=== PATIENT | male | born 1960 | race African-American/Black ===

== ENCOUNTER 2020-07-01 10:30 | Outpatient (REF) | payer OTHER, SELFPAY | END 2020-07-01 10:31 | disposition home or self-care (01) | LOC: HO.MDS 10:30 | PROVIDERS: PCP Internal Medicine; Visit Provider Internal Medicine | DX: K50.90 Crohn's disease, unspecified, without complications (principal) | CPT/HCPCS: 96413; 96415; J1745 ==

== ENCOUNTER 2020-08-12 14:08 | Outpatient (REF) | payer OTHER, SELFPAY ==
[2020-08-15 10:57] LABS: TS Negative Control Passed; TS Panel A 0; TS Panel B 0; TS Positive Control Passed; TSpotTB Negative (SeeBelow)
== END 2020-08-12 14:09 | disposition home or self-care (01) ==
LOC: HO.MDS 14:08
PROVIDERS: PCP Internal Medicine; Visit Provider Internal Medicine
DX: K50.90 Crohn's disease, unspecified, without complications (principal)
CPT/HCPCS: 86481; 96413; 96415; J1745

== ENCOUNTER → 2020-09-02 13:48 | Outpatient (BNVA) | payer OTHER, SELFPAY | PROVIDERS: PCP Internal Medicine; Referring Provider Internal Medicine; Visit Provider Surgery | DX: Z76.89 Persons encountering health services in other specified circumstances (principal) ==

== ENCOUNTER 2020-09-13 09:56 | Inpatient (IN) | payer OTHER, SELFPAY ==
[2020-09-05 20:59] VITALS: BMI 48.7
--- NOTE | 2020-09-12 09:41 | P.CONAN_ITS ---
Documented by User: Sofiya Disla 09/12/20 09:42 HPI - Anesthesia Eval Consult details Narrative: 59yo M for Repair of Incisional Hernias with Mesh [facility] Past Medical History Medical History Aortic aneurysm Asthma Crohn's disease GERD (gastroesophageal reflux disease) Gout Incisional hernia Obesity Obstructive sleep apnea Smoker Family History Family History Father History of prostate cancer Mother History of lung cancer Brother History of prostate cancer Surgical History Surgical History History of bowel resection (~2005) History of colonoscopy History of hernia repair (~2008) History of incisional hernia repair (10/11/18) Social History Social History Alcohol intake: never Smoking Status: Heavy tobacco smoker Packs Per Day: 1.5 Cigarettes Per Day: 30.0 Smoked in Last 30 Days: Yes Patient Interested in Nicotine Replacement: Yes Use of substances other than those prescribed or required for medical reasons: No Advance Directives: No Advance Directives Information Provided: No Advance Directives on File: No Meds Allergies Allergy/AdvReac Type Severity Reaction Status Date / Time Fish Containing Products Allergy Severe HIVES Verified 09/05/20 21:09 peanut Allergy Severe HIVES/SEVERE Verified 09/05/20 21:09 N/V egg [EGGS] Allergy Unknown DIARRHEA Verified 09/05/20 21:09 Home Medications Medication Instructions Recorded Confirmed Type ascorbic acid (vitamin C) 1,000 mg 500 mg PO BID 09/02/20 09/05/20 History tablet hydrochlorothiazide 25 mg tablet 25 mg PO DAILY 09/02/20 09/05/20 History infliximab 100 mg intravenous 100 mg IV DIRECTED 09/02/20 09/05/20 History solution omeprazole 40 mg capsule,delayed 40 mg PO DAILY 09/02/20 09/05/20 History release allopurinol 100 mg PO BID 09/05/20 09/05/20 History colchicine [Colcrys] 0.6 mg PO BID 09/05/20 09/13/20 History diclofenac sodium 2 g TOPICAL QID PRN 09/05/20 09/05/20 History dicyclomine 10 mg PO BID 09/05/20 09/05/20 History folic acid 1 mg PO DAILY 09/05/20 09/05/20 History gabapentin 400 mg PO TID 09/05/20 09/05/20 History loperamide 2 mg PO Q6H PRN 09/05/20 09/05/20 History oxycodone 10 mg PO BID PRN 09/05/20 09/05/20 History Symbicort 09/13/20 History albuterol sulfate [ProAir HFA] INHALATION 09/13/20 History Exam Exam Date and Time: September 12, 2020 0941 Height,Weight and Vital Signs: Height 5 ft 9 in Weight 149.685 kg Documented by User: Luis Carlos Triana 09/13/20 11:30 PMFSH Past Medical History Medical History Aortic aneurysm Asthma Crohn's disease GERD (gastroesophageal reflux disease) Gout Incisional hernia Obesity Obstructive sleep apnea Smoker Family History Family History Father History of prostate cancer Mother History of lung cancer Brother History of prostate cancer Family history of problems with anesthesia: No Surgical History Surgical History History of bowel resection (~2005) History of colonoscopy History of hernia repair (~2008) History of incisional hernia repair (10/11/18) History of Problems with Anesthesia: No Social History Social History Alcohol intake: never Smoking Status: Heavy tobacco smoker Packs Per Day: 1.5 Cigarettes Per Day: 30.0 Smoked in Last 30 Days: Yes Patient Interested in Nicotine Replacement: Yes Use of substances other than those prescribed or required for medical reasons: No Advance Directives: No Advance Directives Information Provided: No Advance Directives on File: No Meds Allergies Allergy/AdvReac Type Severity Reaction Status Date / Time Fish Containing Products Allergy Severe HIVES Verified 09/05/20 21:09 peanut Allergy Severe HIVES/SEVERE Verified 09/05/20 21:09 N/V egg [EGGS] Allergy Unknown DIARRHEA Verified 09/05/20 21:09 Home Medications Medication Instructions Recorded Confirmed Type ascorbic acid (vitamin C) 1,000 mg 500 mg PO BID 09/02/20 09/05/20 History tablet hydrochlorothiazide 25 mg tablet 25 mg PO DAILY 09/02/20 09/05/20 History infliximab 100 mg intravenous 100 mg IV DIRECTED 09/02/20 09/05/20 History solution omeprazole 40 mg capsule,delayed 40 mg PO DAILY 09/02/20 09/05/20 History release allopurinol 100 mg PO BID 09/05/20 09/05/20 History colchicine [Colcrys] 0.6 mg PO BID 09/05/20 09/13/20 History diclofenac sodium 2 g TOPICAL QID PRN 09/05/20 09/05/20 History dicyclomine 10 mg PO BID 09/05/20 09/05/20 History folic acid 1 mg PO DAILY 09/05/20 09/05/20 History gabapentin 400 mg PO TID 09/05/20 09/05/20 History loperamide 2 mg PO Q6H PRN 09/05/20 09/05/20 History oxycodone 10 mg PO BID PRN 09/05/20 09/05/20 History Symbicort 09/13/20 History albuterol sulfate [ProAir HFA] INHALATION 09/13/20 History Exam Airway Mallampati Class: I TM Dist: <=3cm Neck ROM: Limited Other: missing teeth no neck, huge head Assessment and Plan Assessment Anesthesia Assessment: Anesthesia Plan Discussed and Chart Reviewed Final Anesthetic Review NPO: Yes ASA Class: III Final Preanesthetic Review: No Changes in Pt Med Stat, Meds/Allgs Chart Reviewed, Consent Obtained/Reviewed and Anes Risks/Benef Reviewed Patient Risk: High Procedure Risk: Intermediate Anesthetic Plan Anesthetic Plan: GA and Agree w/ Assess. and Plan Disposition: Standard PACU
[2020-09-13] VITALS (10 sets, daily range): BP systolic 119–147; BP diastolic 65–84; PULSE 80–107; RESP 16–18; TEMP 36.1–37.1; O2SAT 91–100
--- NOTE | 2020-09-13 | ECG_ITS ---
Test Reason : PREOP Blood Pressure : / mmHG Vent. Rate : 110 BPM Atrial Rate : 110 BPM P-R Int : 170 ms QRS Dur : 074 ms QT Int : 340 ms P-R-T Axes : 058 014 041 degrees QTc Int : 460 ms Sinus tachycardia Possible Left atrial enlargement Borderline ECG No previous ECGs available Referred By: Sofiya Disla Electronically Signed By:Derrick Gurrola
[2020-09-13] MEDS: Lactated Ringers 1,000 ML 100 ML IVCONT (10:13)
[2020-09-13 10:17] LABS: COVID-19 Test Negative (Negative)
[2020-09-13] MEDS: ceFAZolin Sodium/Dextrose,Iso 2 GM/50 ML PIGGYBACK IV (10:20)
--- NOTE | 2020-09-13 10:55 | MHC.SHP ---
Pre-Procedural Eval Section B Chief Complaint: Incisional Hernia Allergies: Allergies Allergy/AdvReac Type Severity Reaction Status Date / Time Fish Containing Products Allergy Severe HIVES Verified 09/05/20 21:09 peanut Allergy Severe HIVES/SEVERE Verified 09/05/20 21:09 N/V egg [EGGS] Allergy Unknown DIARRHEA Verified 09/05/20 21:09 Plan I have reviewed the history and physical and performed a pertinent physical examination on my patient. No changes have occurred unless specified.
--- NOTE | 2020-09-13 13:48 | PM.OP ---
Brief Operative Note Date of Service: 09/13/20 Pre-op diagnosis: Multiple incisional hernias Post-op diagnosis: same Procedure: Repair of multiple incisional hernias; left midabdominal hernia repaired with mesh Implants: Ventralex 6cm Surgeon: Javier Muniz MD Anesthesia: GETA Napper Grinder: Tara Cortés Estimated blood loss (mL): 20 Pathology: none sent Condition: stable Disposition: PACU
--- NOTE | 2020-09-13 15:27 | OP_ITS ---
SURGEON: Javier Muniz MD INDICATIONS: The patient is a 59-year-old male, who had previously undergone multiple abdominal surgeries for Crohn's disease in the distant past. He had developed multiple incisional hernias including an old colostomy site on the left. He had undergone multiple repairs in the past. I had done a repair on him more than a year ago. He came back to me this year because of what he noted was other hernias that had appeared again. One was in the area of the colostomy and multiple hernias in the midline. I had reviewed this CAT scan myself and these hernias were noted along with bowel loops. In view of symptoms, he wanted to proceed with repair. He understood technique of repair with mesh of these multiple hernias. He was aware of the risks, benefits, and alternatives. He understood the high risk of recurrence in view of his morbid obesity as well as the recurrent nature of these hernias already. PREOPERATIVE DIAGNOSIS: Multiple incisional hernias. POSTOPERATIVE DIAGNOSIS: Multiple incisional hernias. PROCEDURE PERFORMED: Repair of multiple incisional hernias x3, one with Ventralex mesh, extensive lysis of adhesions. ESTIMATED BLOOD LOSS: COMPLICATIONS: ANESTHESIA: ASSISTANTS: Tara Cortés PA-C. SPECIMENS: DESCRIPTION OF PROCEDURE: He was brought to the operating room and placed supine on the table under general anesthesia via endotracheal tube. The abdomen was prepped and draped in usual sterile fashion. The surgical time-out was done. The patient received cefazolin 2 g IV preoperatively. I made a transverse incision on the skin on the left side where the old colostomy was. This was made using blade #15, it was carried down to full-thickness skin and subcutaneous fat. We gently dissected through the thick subcutaneous fat until we were able to visualize what appeared to be hernia sac. We dissected the sac off the rest of subcutaneous layer sharply with Metzenbaum scissors. This part of the procedure took an extended period of time because of the presence of bowel loops within the hernia itself. We had to extend the skin incision to be able to visualize the entire bowel loops. There was note of very large sac and large bowel loops. We had took long time for us to dissect the entire bowel loops off the rest of the subcutaneous layer. Eventually, able to separate all the bowel loops and sac from the thick subcutaneous fat. I gently and sharply dissected the sac off the rest of the fascia circumferentially with Metzenbaum scissors. We applied Clay clamps along the way on the fascia to be able to retract this and have a clear definition of the interface between the fascia and the bowel loops. We continued to dissect until we were able to completely reduce the entire hernia. The sac had reduced in the herniated bowel loops. I proceeded to continue to do sharp dissection of the underside of the fascial defect to allow placement of mesh. Again, the patient also had a lot of adhesions and lysing these adhesions under the fascial defect took a long period of time. Eventually, I felt that we had achieved adequate margins for placement of the mesh. The fascial defect on this area was about 4 x 3 cm in size. The patient had multiple other hernias in the midline. I proceeded to then made an incision on the upper midline using blade #15 and this was carried down through the subcutaneous fat. On the CAT scan, we had noted that the bowel loops were immediately under the skin, so we did not do a lot of dissection with the electrocautery. I did sharp dissection with the Metzenbaum scissors to separate the bowel loops off the rest of the thin subcutaneous layer. I was able to identify an edge of the fascia on the midline and I proceeded to apply Clay clamp on this. With this as a guide, by retracting the fascia, proceeded to continue to gently dissect the bowel loops off the fascial defect circumferentially. Again, we had to do a prolonged dissection in view of the presence of very adherent small bowel loops. We proceeded circumferentially until we were able to reduce the entire hernia. There was note of mesh on the defect. This had incorporated well already. There was a lot of extensive adhesions in the underside of the fascial layer. However, I felt that we would not be able to apply a and adequate space for this. I did not want to be aggressive with regard to further lysis of the small bowel loops around the fascia and view of the high risk of enterotomy. The defect on this midline just above the umbilicus was about 4 cm long as well. By palpation of the underside, I was able to palpate another defect superior to this, which was smaller. There was note of intervening intact fascia, about 1.5 cm. I decided to preserve this intervening fascia and continued to dissect on the subcutaneous layer to expose to expose the other 3rd hernia on the midline, which was higher up in the epigastric area. I had extended the skin incision from the midline earlier superiorly. I continued to dissect with the Metzenbaum scissors in the subcutaneous layer until I was able to visualize the sac. We gently dissected the sac off the rest of the fascial defect using Metzenbaum scissors until we were able to completely reduce this. I dissected the underside of this defect as well with Metzenbaum scissors. Again, in view of the very dense adhesions surrounding the area, I felt that we would not be able to apply another mesh here. So, I planned on closing these last 2 defects primarily with sutures. This 3rd defect was about 2 cm in length. I closed this with a running Maxon 1 stitch on the fascia. I then closed the 2nd larger defect in the midline using a running Maxon 1 stitch as well with care being taken to make sure that he did not have any bowel loops trapped by the sutures. I was able to complete this using the remaining intact fascia as well as the mesh on one side. We were able to therefore complete the repair of these 2 midline hernias primarily with sutures. I proceeded to then apply a medium-sized Ventralex mesh on the hernia on the old colostomy site. I was able to position this flat under the fascia by lifting the fascial edges with Clay clamps. I secured the Prolene straps to the fascial layer with Prolene 2-0 sutures. I then trimmed the straps. I closed the fascia with running Maxon 1 stitch incorporating the Prolene layer as well with some of the sutures. We copiously irrigated. I then reapposed the subcutaneous layer on this left-sided hernia with Dexon 3-0 sutures. Skin closure achieved in all incisions using tyrone. All incisions were infiltrated with Marcaine 0.5% for postop analgesia and the procedure was completed. The patient tolerated the procedure well. There were no complications noted. Initial and final counts of sponges and instruments were correct. Estimated blood loss was minimal. The patient was extubated without difficulty and transferred to recovery room with stable vital signs. MD KRYSTA La/CHEMO / [id number] JAH
--- NOTE | 2020-09-13 15:55 | PM.EVENT ---
Event Note Date of Service: 09/13/20 Event Note: pt seen and examined postop he underwent repair of multiple hernias today currently good pain control stable VS abd soft pain mgt abdl binder home if good pain control after 1-2 days
[2020-09-13] MEDS: Gabapentin 400 MG CAPSULE PO ×2 (16:14→19:33)
[2020-09-13] MEDS: Nicotine 21 MG PATCH.TD24 TRANSDERMA (16:14)
[2020-09-13] MEDS: Lactated Ringers 1,000 ML 80 ML IVCONT (16:19)
[2020-09-13] MEDS: 0.9 % Sodium Chloride Flush 3 ML SYRINGE IVFLUSH (16:19)
[2020-09-13] MEDS: Morphine Sulfate 2 MG/ML CARTRIDGE 4 MG IVPUSH (19:30)
[2020-09-13] MEDS: Colchicine 0.6 MG TABLET PO (19:34)
[2020-09-13] MEDS: Ascorbic Acid 500 MG TABLET PO (19:34)
[2020-09-13] MEDS: Dicyclomine HCl 10 MG CAPSULE PO (19:34)
[2020-09-14 03:58] VITALS: BP 129/78; PULSE 100; RESP 18; O2SAT 95
[2020-09-14] MEDS: Lactated Ringers 1,000 ML 80 ML IVCONT (04:35)
[2020-09-14] MEDS: Omeprazole 40 MG CAPSULE.DR PO (04:36)
[2020-09-14] MEDS: Morphine Sulfate 2 MG/ML CARTRIDGE 4 MG IVPUSH (05:57)
[2020-09-14 08:00] VITALS: BP 108/73; PULSE 90; RESP 20; TEMP 37.6; O2SAT 97
[2020-09-14] MEDS: Gabapentin 400 MG CAPSULE PO (09:13)
[2020-09-14] MEDS: allopurinoL 100 MG TABLET PO (09:13)
[2020-09-14] MEDS: Ascorbic Acid 500 MG TABLET PO (09:13)
[2020-09-14] MEDS: Folic Acid 1 MG TABLET PO (09:13)
[2020-09-14] MEDS: hydroCHLOROthiazide 25 MG TABLET PO (09:13)
[2020-09-14] MEDS: Colchicine 0.6 MG TABLET PO (09:14)
[2020-09-14] MEDS: Nicotine 21 MG PATCH.TD24 TRANSDERMA (09:14)
[2020-09-14] MEDS: Dicyclomine HCl 10 MG CAPSULE PO (09:14)
--- NOTE | 2020-09-14 09:51 | P.PNGS_ITS ---
Subjective Subjective Date of Service: 09/14/20 Interval history: feels well tolerating diet good pain control wants to go home has flatus Physical Exam Vital Signs: Vital Signs: Last Vital Signs Temp 99.6 F 09/14/20 08:00 Pulse 90 09/14/20 08:00 Resp 20 09/14/20 08:00 BP 108/73 09/14/20 08:00 Pulse Ox 97 09/14/20 08:00 Body Mass Index 48.7 Const: General: comfortable and no acute distress Cardio: Rate: regular rate GI: Other: dressings dry Palpation (GI): Soft to palpation, not firm, no guarding and not rigid Progress Note: A&P Assessment and plan (1) Incisional hernia: Status: Acute Assessment and Plan: S/P repair of multiple hernias doing well looks well good pain control good GI function ok to dc home today dc instructions given Fall Risk Details Current Medications: Current Medications Generic Name Dose Route Start Last Admin Trade Name Freq PRN Reason Stop Dose Admin Albuterol Sulfate 1 puff 09/13/20 15:22 Albuterol Sulfate 90 Mcg 8 Gm Inhaler INHALE RQ6H PRN Shortness of Breath/Wheezing Allopurinol 100 mg 09/13/20 21:00 09/14/20 09:13 Allopurinol 100 Mg Tablet PO 100 mg BID MICAH Administration Ascorbic Acid 500 mg 09/13/20 21:00 09/14/20 09:13 Ascorbic Acid 500 Mg Tablet PO 500 mg BID MICAH Administration Colchicine 0.6 mg 09/13/20 21:00 09/14/20 09:14 Colchicine 0.6 Mg Tablet PO 0.6 mg BID MICAH Administration Dicyclomine HCl 10 mg 09/13/20 21:00 09/14/20 09:14 Dicyclomine Hcl 10 Mg Capsule PO 10 mg BID MICAH Administration Docusate Sodium 100 mg 09/13/20 15:22 Docusate Sodium 100 Mg Capsule PO DAILY PRN Constipation Folic Acid 1 mg 09/14/20 09:00 09/14/20 09:13 Folic Acid 1 Mg Tablet PO 1 mg DAILY MICAH Administration Gabapentin 400 mg 09/13/20 15:22 09/14/20 09:13 Gabapentin 400 Mg Capsule PO 400 mg TID MICAH Administration Hydrochlorothiazide 25 mg 09/14/20 09:00 09/14/20 09:13 Hydrochlorothiazide 25 Mg Tablet PO 25 mg DAILY MICAH Administration Protocol Acetaminophen 1,000 mg in 100 mls @ 400 mls/hr 09/13/20 18:00 09/14/20 05:06 Ofirmev IV Infused Q6H PRN Infusion Pain, Severe (Pain Scale 7-10) Lactated Ringer's 1,000 mls @ 80 mls/hr 09/13/20 15:22 09/14/20 05:06 Lr IVCONT 80 mls/hr .[id number] MICAH Infusion Morphine Sulfate 4 mg 09/13/20 15:22 09/14/20 05:57 Morphine Sulfate 2 Mg/Ml Cartridge IVPUSH 4 mg Q3H PRN Administration Pain, Severe (Pain Scale 7-10) Nicotine 21 mg 09/13/20 14:15 09/14/20 09:14 Nicotine 21 Mg Patch.Td24 TRANSDERMA 21 mg DAILY MICAH Administration Omeprazole 40 mg 09/14/20 06:30 09/14/20 04:36 Omeprazole 40 Mg Capsule.Dr PO 40 mg DAILY@0630 [facility] Administration Ondansetron HCl 4 mg 09/13/20 15:22 Ondansetron Hcl 4 Mg/2 Ml Vial IVPUSH Q8H PRN Nausea Oxycodone HCl 5 mg 09/13/20 15:22 Oxycodone Hcl Immed Release 5 Mg Tablet PO Q4H PRN Pain, Moderate (Pain Scale 4-6 Oxycodone HCl 10 mg 09/13/20 15:22 Oxycodone Hcl Immed Release 5 Mg Tablet PO Q4H PRN Pain, Severe (Pain Scale 7-10) Sodium Chloride 3 ml 09/13/20 16:00 09/14/20 07:14 0.9 % Sodium Chloride Flush 3 Ml Syringe IVFLUSH Not Given QSHIFT [facility] Time Spent With Patient Time: Total time spent is greater than 50% in coordination of care (as documented) at patient's floor/unit and/or counseling patient: Time with patient: 15 - 24 minutes
--- NOTE | 2020-09-14 10:02 | MHC.CM.PN ---
PATIENT LIVES WITH HIS AND IS FULLY INDEPENDENT. NO DME OR SERVICES IN THE HOME. HE IS DISCHARGED TO TODAY - SELF CARE. WILL TRANSPORT. RN AWARE OF PLAN
[2020-09-14] MEDS: oxyCODONE HCl Immed Release 5 MG TABLET 10 MG PO (10:15)
--- NOTE | 2020-09-15 02:01 | HO.POSTANES ---
Post Anesthesia Evaluation Post Anesthesia Evaluation Anesthesia: General Mental Status: Awake Pain Control: Satisfactory Nausea/Vomiting: None Hydration: Adequate Anesthesia-Related Issues: No Anes. Related Issues
--- NOTE | 2020-09-17 14:22 | P.DS_ITS ---
DS: Providers Provider Date of admission: 09/13/20 09:56 Primary care physician: Max Lara MD DS: Diagnosis Discharge Diagnosis (1) Incisional hernia: Status: Acute DS: Medications Discharge Medications Home Medications: Home Medications Medication Instructions Recorded Confirmed ascorbic acid (vitamin C) 1,000 mg 500 mg PO BID 09/02/20 09/05/20 tablet hydrochlorothiazide 25 mg tablet 25 mg PO DAILY 09/02/20 09/05/20 infliximab 100 mg intravenous 100 mg IV DIRECTED 09/02/20 09/05/20 solution omeprazole 40 mg capsule,delayed 40 mg PO DAILY 09/02/20 09/05/20 release allopurinol 100 mg PO BID 09/05/20 09/05/20 colchicine [Colcrys] 0.6 mg PO BID 09/05/20 09/13/20 diclofenac sodium 2 g TOPICAL QID PRN 09/05/20 09/05/20 dicyclomine 10 mg PO BID 09/05/20 09/05/20 folic acid 1 mg PO DAILY 09/05/20 09/05/20 gabapentin 400 mg PO TID 09/05/20 09/05/20 loperamide 2 mg PO Q6H PRN 09/05/20 09/05/20 oxycodone 10 mg PO BID PRN 09/05/20 09/05/20 Symbicort 09/13/20 albuterol sulfate [ProAir HFA] INHALATION 09/13/20 DS: Summary Hospital Course Hospital Course: BRIEF HPI: 59 year old male who had previously undergone multiple abdominal surgeries for Crohn's disease in the distant past. He had developed multiple incisional hernias including at his old colostomy site on the left. He had undergone multiple repairs in the past. He now presents again for incisional hernias. He wants the 2 largest hernias repaired as these were the ones that he says have been bothersome to him. HOSPITAL COURSE: 0n 09/13/20, repair of multiple incisional hernias, one with mesh, was performed by Dr. Javier Muniz without complication. The patient tolerated the procedure well and was admitted to the medical/surgical floor for observation. The patient had an uncomplicated recovery course. On POD #1, the patient felt well and was comfortable. He was tolerating a solid diet and passing flatus. His abdomen was benign with appropriate post operative tenderness. His dressing was c/d/i. He felt ready for discharge. He was discharged to home on 09/14/20 in stable condition. He is to follow up with Dr. Muniz in office. Status at Discharge Functional status at discharge: independent ambulation Overall status at discharge: patient is progressing back to baseline Time Spent with Patient Time attestation: Total time spent providing and/or coordinating discharge services: Physical Exam Vital Signs: Vital Signs: Last Vital Signs Temp 99.6 F 09/14/20 08:00 Pulse 90 09/14/20 08:00 Resp 20 09/14/20 08:00 BP 108/73 09/14/20 08:00 Pulse Ox 97 09/14/20 08:00 Body Mass Index 48.7 Const: General: comfortable, no acute distress and alert Orientation/consc iousness: patient oriented x3 Resp: Effort & Inspection: normal respiratory effort GI: Inspection: No distended, Yes incision (dressing c/d/i) and Yes obesity Palpation (GI): Soft to palpation, Tenderness to palpation present (GI) (incisional, mild), not rigid and No Rebound tenderness present Skin: General skin exam: no rashes or lesions noted Neuro: General: patient oriented x3 Extrem: General: Yes no clubbing, cyanosis or edema DS: Data Data Completed and Pending Completed studies during hospitalization [Text1]: Procedures Release Peritoneum, Open Approach (09/13/20) Repair Abdominal Wall, Open Approach (09/13/20) Supplement Abdominal Wall with Synthetic Substitute, Open Approach (09/13/20) Labs on day of discharge: 09/13/20 ECG 12 lead EKG Stat 09/13/20 09:43 Albuterol Sulfate (0.083%) [Ventolin (0.083%)] 2.5 mg INHALE ONCE PRN 09/13/20 09:44 ceFAZolin Sodium/Dextrose,Iso [Ancef] 2 gm in 50 ml IV PREOP 09/13/20 09:45 Lactated Ringers [Lr] 1,000 ml IVCONT 100 mls/hr 09/13/20 09:51 COVID-19 ID NOW (Mauricio) Stat 09/13/20 10:18 ceFAZolin Sodium/Dextrose,Iso [Ancef] 2 gm in 50 ml .ROUTE As directed 09/13/20 10:56 Bupivacaine MPF 0.5 % [Sensorcaine MPF 0.5% 30 ML] 30 ml .ROUTE .STK-MED ONE Lidocaine HCl 1 % MPF [Xylocaine 1 % MPF] 5 ml .ROUTE .STK-MED ONE 09/13/20 11:19 Lidocaine HCl 2 % MPF [Xylocaine 2 % MPF] 5 ml .ROUTE .STK-MED ONE fentaNYL citrate/PF [Sublimaze] 50 mcg .ROUTE .STK-MED ONE propofoL [Diprivan] 200 mg IVPUSH .STK-MED ONE 09/13/20 11:37 HYDROmorphone HCl [Dilaudid] 0.5 mg IVPUSH Q5M PRN Ketorolac Tromethamine [Toradol] 15 mg IVPUSH ONCE PRN fentaNYL citrate/PF [Sublimaze] 50 mcg IVPUSH Q5M PRN 09/13/20 11:41 Acetaminophen [Ofirmev] 1,000 mg in 100 ml IV As directed 09/13/20 11:51 Rocuronium [place] [Zemuron] 100 mg IV .STK-MED ONE 09/13/20 12:49 fentaNYL citrate/PF [Sublimaze] 50 mcg .ROUTE .STK-MED ONE 09/13/20 13:29 Sugammadex Sodium [Bridion] 200 mg IVPUSH .STK-MED ONE ondansetron HCL [Zofran] 4 mg .ROUTE .STK-MED ONE 09/13/20 13:49 HYDROmorphone HCl [Dilaudid] 2 mg .ROUTE .STK-MED ONE 09/13/20 13:53 Transfer Order Routine 09/13/20 14:15 Nicotine [Nicoderm] 21 mg TRANSDERMA DAILY 09/13/20 14:37 propofoL [Diprivan] 200 mg IVPUSH .STK-MED ONE 09/13/20 15:08 Code Status Routine 09/13/20 15:22 Albuterol Sulfate [Ventolin] 1 puff INHALE RQ6H PRN Docusate Sodium [Colace] 100 mg PO DAILY PRN Gabapentin [Neurontin] 400 mg PO TID Lactated Ringers [Lr] 1,000 ml IVCONT 80 mls/hr Morphine Sulfate 4 mg IVPUSH Q3H PRN ondansetron HCL [Zofran] 4 mg IVPUSH Q8H PRN oxyCODONE HCl Immed Release [Roxicodone] 10 mg PO Q4H PRN oxyCODONE HCl Immed Release [Roxicodone] 5 mg PO Q4H PRN 09/13/20 15:22 Apply Abdominal Binder CONT Compression Therapy QSHIFT Incentive Spirometry NOW Intake and Output Q8HR Vital Signs QSHIFT RT BiPAP/CPAP BEDTIME 09/13/20 16:00 0.9 % Sodium Chloride Flush [NS Flush] 3 ml IVFLUSH QSHIFT 09/13/20 18:00 Acetaminophen [Ofirmev] 1,000 mg in 100 ml IV Q6H 09/13/20 21:00 Ascorbic Acid [Vitamin C] 500 mg PO BID Colchicine [Colcrys] 0.6 mg PO BID Dicyclomine HCl [Bentyl] 10 mg PO BID allopurinoL [Zyloprim] 100 mg PO BID 09/14/20 06:30 Omeprazole [PriLOSEC] 40 mg PO DAILY@0630 09/14/20 09:00 Folic Acid 1 mg PO DAILY hydroCHLOROthiazide [Microzide] 25 mg PO DAILY Laboratory Last Values COVID-19 (CED) Negative (Negative) 09/13/20 09:51 COVID-19 Clin Com See Note 09/13/20 09:51 Discharge Plan Discharge Anticipated Discharge Date/Time: 09/14/20 09:57 Patient Disposition: Home, Self-Care Referrals: Max Lara MD [Primary Care Provider] - Javier Muniz MD [Physician] - 09/25/20 Discharge Medications: Continued gabapentin 400 mg Capsule 400 mg PO TID RF: 0 loperamide 2 mg Tablet 2 mg PO Q6H PRN (Reason: Diarrhea) RF: 0 allopurinol 100 mg Tablet 100 mg PO BID RF: 0 folic acid 1 mg Tablet 1 mg PO DAILY RF: 0 dicyclomine 10 mg Capsule 10 mg PO BID RF: 0 diclofenac sodium 1 % Gel 2 g TOPICAL QID PRN (Reason: Pain) RF: 0 oxycodone 10 mg Tablet 10 mg PO BID PRN (Reason: Pain) RF: 0 colchicine [Colcrys] 0.6 mg Tablet 0.6 mg PO BID RF: 0 albuterol sulfate [ProAir HFA] 90 mcg/actuation Hfa Aerosol Inhaler INHALATION RF: 0 Symbicort RF: 0 omeprazole 40 mg capsule,delayed release(DR/EC) 40 mg PO DAILY RF: 0 Remicade 100 mg recon soln 100 mg IV DIRECTED RF: 0 ascorbic acid (vitamin C) 1,000 mg tablet 500 mg PO BID RF: 0 hydrochlorothiazide 25 mg tablet 25 mg PO DAILY RF: 0 Discharge Orders: Discharge Order (Routine); Ordered 09/14/20 Ordered By: Javier Muniz Diet: advance to usual diet Activity on Discharge: No heavy lifting Discharge Date/Time: 09/14/20 12:44 Activity Restrictions/Additional Instructions: If the incision area is tender, you may apply an ice pack for short intervals (No more than 20 minutes on, followed by at least 20 minutes off). Do not apply heat. Do not use creams, lotions, or topical antibiotics unless instructed to do so by your surgeon. These can cause infection or allergic reaction. Ok to shower. You have tyrone closing your incision and these will be removed approximately 10-14 days after surgery. Call Your Doctor If: -Your temperature exceeds 101.5? F -You experience excessive pain or swelling -You have an unexpected reaction to medication -You have excessive bleeding -You experience continued vomiting/nausea -Your incision begins to separate -Your incision shows signs of infection such as increased redness, swelling, excessive pain, drainage (light blood or clear fluid is normal) or heat Visit Report Forms: Patient Portal Discharge page Care Plan Goals: Return to baseline health and activity. Health Concerns: Multiple incisional hernias; s/p repair of multiple incisional hernias, one with mesh (left midabdomen) Plan of Treatment: s/p repair of multiple incisional hernias, one with mesh (left midabdomen); pain control
== END 2020-09-14 12:44 | disposition home or self-care (01) | DRG 337 ==
LOC: HO.SSSA 09:57 → HO.S3 12:29
PROVIDERS: Admitting Provider Surgery; PCP Internal Medicine; Visit Provider Surgery
PROC: 0DNW0ZZ Release Peritoneum, Open Approach (ICD-10-PCS; principal; 2020-09-13 11:00)
DX: K43.2 Incisional hernia without obstruction or gangrene (principal); K21.9 Gastro-esophageal reflux disease without esophagitis; F17.210 Nicotine dependence, cigarettes, uncomplicated; K66.0 Peritoneal adhesions (postprocedural) (postinfection); Z71.6 Tobacco abuse counseling; Z20.828 Contact with and (suspected) exposure to other viral communicable diseases
CPT/HCPCS: 87635; 93005; 99024; C1781; J0131; J0690; J1170; J2270; J2405; J3010

== ENCOUNTER 2020-09-25 10:16 | Outpatient (REF) | payer OTHER, SELFPAY | END 2020-09-25 10:17 | disposition home or self-care (01) | LOC: HO.MDS 10:16 | PROVIDERS: PCP Internal Medicine; Visit Provider Internal Medicine | DX: K50.90 Crohn's disease, unspecified, without complications (principal) | CPT/HCPCS: 96413; 96415; J1745 ==

== ENCOUNTER → 2020-10-31 09:51 | Outpatient (BNVA) | payer BC, SELFPAY | PROVIDERS: PCP Internal Medicine; Visit Provider Surgery ==

== ENCOUNTER → 2020-11-08 14:52 | Outpatient (BNVA) | payer BC, SELFPAY | PROVIDERS: PCP Internal Medicine; Visit Provider Surgery ==

== ENCOUNTER 2020-11-25 10:59 | Outpatient (REF) | payer BC, SELFPAY | END 2020-11-25 11:00 | disposition home or self-care (01) | LOC: HO.MDS 10:59 | PROVIDERS: PCP Internal Medicine; Visit Provider Internal Medicine | DX: K50.90 Crohn's disease, unspecified, without complications (principal) | CPT/HCPCS: 96365; 96366; 96413; 96415; J1745 ==

== ENCOUNTER → 2020-11-27 08:12 | Outpatient (BNVA) | payer BC, SELFPAY | PROVIDERS: PCP Internal Medicine; Visit Provider Surgery ==

== ENCOUNTER 2020-11-28 10:36 | Outpatient (REF) | payer BC, SELFPAY ==
--- NOTE | ~2020-11-28 | XR_ITS ---
EXAMINATION: XR CHEST CLINICAL INFORMATION: Obesity COMPARISON: Previous chest x-ray most recent August 2013 and lung windows from previous abdominal and pelvic CT scans most recent February 2020 TECHNIQUE: 2 views of the chest were obtained. FINDINGS: The cardiac and mediastinal contours are normal. There is a 3.5 cm nodular density seen on the lateral view anterior to the lower thoracic spine. No corresponding abnormality is appreciated on the PA view and this may be due to overlapping vascular structures. No lung nodule is seen on the lung windows from recent abdominal and pelvic CT scans. The lungs are otherwise clear. There is no pleural effusion or pneumothorax. Bony structures are unremarkable. XR/XR chest 2V IMPRESSION: 3 cm nodule projecting over the lower lobes on the lateral view. This is not appreciated on the PA view and may be related to overlapping vascular structures. Follow-up chest CT scan to exclude nodule should be considered.
--- NOTE | ~2020-11-28 | FL_ITS ---
EXAMINATION: FL UPPER GI SERIES CLINICAL INFORMATION: Bariatric service evaluation. E66.01. COMPARISON: CT abdomen and pelvis noncontrast 03/21/2020 TECHNIQUE: Upper GI series is performed using fluoroscopic evaluation in addition to multiple fluoroscopic spot views. The patient is imaged both upright and prone and using both thick and thin barium sulfate along with effervescent granules. Fluoroscopy time: 1.2 minutes DAP: 49.39 Gycm2 Fluoroscopic spot images: 18 FINDINGS: There is normal esophageal motility. There is no obstruction, stricture, or ulceration. Some borderline herniation at the esophagogastric junction is noted during the prone Valsalva maneuver but no hiatal hernia is demonstrated. No gastroesophageal reflux is demonstrated. The stomach shows no thickened folds or ulcer crater or outlet obstruction. The duodenal bulb is pliable and without ulcer crater or scarring. The post bulbar duodenum the jejunal mucosal pattern are unremarkable. FL/FL upper GI series IMPRESSION: Normal study.
--- NOTE | ~2020-11-28 | US_ITS ---
EXAMINATION: US COMPLETE ABDOMEN WITH LIVER ELASTOGRAPHY CLINICAL INFORMATION: Morbid obesity. COMPARISON: None. TECHNIQUE: Real-time imaging of the abdominal viscera. Noninvasive ultrasound liver fibrosis assessment is performed using Monet ElastPQ point quantification shear wave elastography (pSWE) with a C5-2 MHz transducer. Multiple elastography samples are obtained. FINDINGS: PANCREAS: The visualized pancreatic head and body are normal in appearance. The remainder of the pancreas is obscured from visualization by the overlying bowel gas. The tail is obscured by overlying gas. ABDOMINAL AORTA: The proximal segment is normal in caliber. The mid and the distal segment of the abdominal aorta is not visualized. INFERIOR VENA CAVA: Visualized portions are normal. LIVER: The liver is normal size and shape with diffuse increased echogenicity. Hypoechoic area at the level of lb hepatis likely focal fatty sparing. No intrahepatic ductal dilatation seen. The right lobe measures 19.0 cm in length. The left lobe measures 14.3 cm in length. Portal flow is normal. Shear wave liver elastography median stiffness is 1.77 m/s (reference: normal median stiffness is 1.3 m/s or less). IQR/median stiffness to assess sampling precision is 0.19 (reference: good quality data set is IQR/median stiffness of 0.15 or less). GALLBLADDER: Normal. The gallbladder is physiologically distended without evidence of stones, sludge, polyps, wall thickening or pericholecystic fluid. COMMON BILE DUCT: Normal in caliber measuring 0.35 cm in diameter. RIGHT KIDNEY: Normal. No hydronephrosis. No renal calculi or focal parenchymal lesions. The kidney measures 10.4 cm in maximum dimension. LEFT KIDNEY: Normal. No hydronephrosis. No renal calculi or focal parenchymal lesions. The kidney measures 11.7 cm in maximum dimension. SPLEEN: Normal. The spleen measures 8.6 cm in maximum dimension. FREE FLUID: None. US/US abdomen comp w elastography IMPRESSION: 1. Heterogeneous liver with area of focal fatty sparing adjacent to the lb hepatis. Rest of the abdominal ultrasound is unremarkable. 2. Liver elastography: Median stiffness 1.77. This is suggestive of cACLD. REFERENCE: Society of Radiologists in Ultrasound Liver Stiffness Thresholds (2020): LIVER STIFFNESS THRESHOLDS: *Liver Stiffness equal or less than 1.3 m/s: High probability of being normal. *Liver Stiffness less than 1.7 m/s: In the absence of other known clinical signs, rules out compensated advanced chronic liver disease. *Liver Stiffness 1.7-2.1 m/s: Suggestive of compensated advanced chronic liver disease but need further test for confirmation. *Liver Stiffness over 2.1 m/s: Rules in compensated advanced chronic liver disease. *Liver Stiffness over 2.4 m/s: Suggestive of clinically significant portal hypertension. QUALITY OF DATA SET: *IQR/Median value equal or less than 0.15 implies a quality data set. *IQR/Median value over 0.15 implies a poor quality data set. SIGNIFICANT CHANGE FROM PRIOR EXAM: Significant change if liver stiffness measurement is 10% or greater from prior exam. OTHER CONSIDERATIONS: The stage of liver fibrosis may be overestimated in the setting of acute hepatitis, liver inflammation, elevated liver function tests, hepatic vascular congestion, obstructive cholestasis, non-fasting state, and infiltrative diseases such as amyloidosis and lymphoma. In some patients with NAFLD, the liver stiffness thresholds for compensated advanced chronic liver disease may be lower. In causes other than viral hepatitis and NAFLD, liver stiffness thresholds are not well established.
== END 2020-11-28 10:37 | disposition home or self-care (01) ==
LOC: HO.US 10:36
PROVIDERS: Visit Provider Surgery
DX: Z01.818 Encounter for other preprocedural examination (principal); E66.01 Morbid (severe) obesity due to excess calories; K21.9 Gastro-esophageal reflux disease without esophagitis; M10.9 Gout, unspecified; K50.90 Crohn's disease, unspecified, without complications; J45.909 Unspecified asthma, uncomplicated; I10 Essential (primary) hypertension; G47.33 Obstructive sleep apnea (adult) (pediatric)
CPT/HCPCS: 71046; 74240; 76705; 76981

== ENCOUNTER → 2020-12-04 08:42 | Outpatient (BNVA) | payer BC, SELFPAY | PROVIDERS: PCP Internal Medicine; Visit Provider Dietitian, Registered ==

== ENCOUNTER 2020-12-06 10:15 | Outpatient (REF) | payer BC, SELFPAY ==
--- NOTE | 2020-12-06 10:39 | ECG_ITS ---
Test Reason : E66.01 Blood Pressure : / mmHG Vent. Rate : 093 BPM Atrial Rate : 093 BPM P-R Int : 168 ms QRS Dur : 080 ms QT Int : 346 ms P-R-T Axes : 000 021 002 degrees QTc Int : 430 ms Normal sinus rhythm Normal ECG When compared with ECG of 13-SEP-2020 09:56, T wave inversion now evident in Inferior leads Referred By: Nate Wallace Electronically Signed By:KRISSY LAWS MD
[2020-12-06 11:28] LABS: MANUAL DIFF FLAG NO
[2020-12-06 11:39] LABS: Basophils Percent Auto 0.2 % (0-2); Hematocrit 40.6 % (42-52); Hemoglobin 12.1 g/dl (14.0-18.0); Imm Gran Abs Auto 0.09 X10*3/uL (0.00-0.03); Imm Gran Pct Auto 0.5 % (0.0-0.4); Lymphocytes Absolute Auto 2.3 X10*3/uL (1.2-4.9); Lymphocytes Percent Auto 13.9 % (20-40); Mean Corpuscular HGB Conc 29.8 g/dl (31.0-36.0); Mean Corpuscular Volume 80.6 fL (80-98); Mean Platelet Volume 10.8 fL (9.4-12.4); Monocytes Percent Auto 6.3 % (2-11); Neutrophils Absolute Auto 13.1 X10*3/uL (2.0-8.3); Neutrophils Percent Auto 79.1 % (45-73); Platelet Count 317 X10*3/uL (160-400); Red Blood Count 5.04 X10*6/uL (4.60-5.80); White Blood Count 16.6 X10*3/uL (4.8-10.8)
[2020-12-06 11:46] LABS: Estimated Average Glucose 97 mg/dL
[2020-12-06 11:51] LABS: Alanine Aminotransferase 21 U/L (0-40); Albumin Level 4.3 g/dL (3.5-5.0); Alkaline Phosphatase 67 U/L (39-117); Anion Gap 13 (12-20); Aspartate Amino Transferase 26 U/L (5-37); Bilirubin Total 0.5 mg/dL (0.0-1.0); Blood Urea Nitrogen 30 mg/dL (9-16); C Reactive Protein 0.12 mg/dL (< or = 0.50); Calcium 9.1 mg/dL (8.4-10.2); Carbon Dioxide 29 mmol/L (22-29); Chloride 105 mmol/L (96-108); Cholesterol 234 mg/dL; Estimated Glomerular Filt Rate 46; Glucose Random 120 mg/dL (60-115); HDL Cholesterol 64 mg/dL; LDL Cholesterol Calculated 133 mg/dl; Potassium 4.3 mmol/L (3.3-5.1); Sodium 143 mmol/L (135-145); Total Protein 7.2 g/dL (6.5-8.0); Triglycerides 189 mg/dL
[2020-12-06 12:12] LABS: Ferritin 170 ng/mL (20-250); Prostate Specific Antigen 0.53 ng/mL (<0.05-4.0); TSH reflex Free T4 1.14 uIU/mL (0.32-4.0); Vitamin D 25-OH Total 37.8 ng/mL (>30)
[2020-12-07 13:22] LABS: Folate > 20.0 ng/mL (> or = 4.0); Vitamin B12 149 pg/mL (200-900)
[2020-12-09 16:07] LABS: Calcium (PTHI) 9.5 mg/dL (8.6-10.3); PTHI 140 pg/mL (14-64)
[2020-12-09 22:26] LABS: Insulin Level Total 38.9 uIU/mL
[2020-12-10 00:21] LABS: Zinc 58 mcg/dL (60-130)
[2020-12-11 12:56] LABS: Vitamin A 83 mcg/dL (38-98)
[2020-12-12 16:27] LABS: Vitamin B1 8 nmol/L (8-30)
== END 2020-12-06 10:16 | disposition home or self-care (01) ==
LOC: HO.LAB 10:15
PROVIDERS: Absent Provider Internal Medicine; PCP Internal Medicine; Visit Provider Surgery
DX: E66.01 Morbid (severe) obesity due to excess calories (principal); R79.89 Other specified abnormal findings of blood chemistry; E78.00 Pure hypercholesterolemia, unspecified; J45.909 Unspecified asthma, uncomplicated; G47.33 Obstructive sleep apnea (adult) (pediatric); K50.90 Crohn's disease, unspecified, without complications; I10 Essential (primary) hypertension; K21.9 Gastro-esophageal reflux disease without esophagitis; E79.0 Hyperuricemia without signs of inflammatory arthritis and tophaceous disease; M10.9 Gout, unspecified; Z12.5 Encounter for screening for malignant neoplasm of prostate
CPT/HCPCS: 36415; 80053; 80061; 82306; 82607; 82728; 82746; 83036; 83525; 83970; 84153; 84425; 84443; 84590; 84630; 85025; 86140; 93005

== ENCOUNTER → 2020-12-19 09:54 | Outpatient (BNVA) | payer BC, SELFPAY | PROVIDERS: PCP Internal Medicine; Visit Provider Dietitian, Registered ==

== ENCOUNTER 2020-12-20 10:43 | Outpatient (REF) | payer BC, SELFPAY ==
[2020-12-21 14:07] LABS: H Pylori Breath Test NOT DETECTED (NOT DETECTED)
== END 2020-12-20 10:44 | disposition home or self-care (01) ==
LOC: HO.LNP 10:43
PROVIDERS: PCP Internal Medicine; Visit Provider Surgery
DX: A04.8 Other specified bacterial intestinal infections (principal); E66.01 Morbid (severe) obesity due to excess calories; J45.909 Unspecified asthma, uncomplicated; G47.33 Obstructive sleep apnea (adult) (pediatric); K50.90 Crohn's disease, unspecified, without complications; I10 Essential (primary) hypertension; K21.9 Gastro-esophageal reflux disease without esophagitis; M10.9 Gout, unspecified
CPT/HCPCS: 83013

== ENCOUNTER → 2020-12-23 08:12 | Outpatient (BNVA) | payer BC, SELFPAY | PROVIDERS: PCP Internal Medicine; Visit Provider Surgery ==

== ENCOUNTER 2020-12-24 14:02 | Outpatient (REF) | payer BC, SELFPAY ==
--- NOTE | ~2020-12-24 | CT_ITS ---
EXAMINATION: CT CHEST WITH CONTRAST CLINICAL INFORMATION: Question pulmonary nodule COMPARISON: Previous chest x-ray November [address] of the abdomen and pelvis February 2020 TECHNIQUE: Multidetector volumetric CT imaging of the chest was obtained after the administration of 100 mL of Omnipaque 350 intravenous contrast without immediate adverse reactions. Axial MIP volume rendering provided. Sagittal and coronal reformatted images were obtained. This CT examination was performed using dose optimization techniques as appropriate, variously including the following: *Automated exposure control *Adjustment of mA and/or kV according to patient size (this includes techniques or standardized protocols for targeted exams where dose is matched to indication/reason for exam; i.e. extremities or head) *Use of iterative reconstruction technique DLP: 875 mGy-cm FINDINGS: FLOATING OPERATOR: Unremarkable LUNGS: There is a scarring or subsegmental atelectasis at the lung bases. The lungs are otherwise clear. No pulmonary nodule is seen. MEDIASTINUM: The mediastinum is normal. PLEURA: There is no pleural effusion. No pleural mass or thickening. AXILLA: No lymphadenopathy. UPPER ABDOMEN: The liver is slightly low in attenuation suggestive of fatty infiltration. There is a small fluid collection just deep to the upper abdominal wall slightly to the left of midline. This measures 2 x 4 cm in AP and transverse dimension and 4.3 cm in longitudinal dimension. This is similar to previous abdominal and pelvic CT scan February 2020 and likely represents a small fluid collection related to hernia repair. OSSEOUS STRUCTURES: There are mild degenerative changes of the spine. CT/CT chest w con IMPRESSION: No pulmonary nodule seen. Minimal linear scarring or subsegmental atelectasis at the lung bases. Fatty liver. 2 x 4 x 4 cm fluid collection just deep to the upper abdominal wall. This is similar to February 2020 exam and likely represents a small postoperative fluid collection post hernia repair.
[2020-12-24] MEDS: iohexoL 350 MG/ML 75 ML INFUS..BTL IV (14:47)
== END 2020-12-24 14:03 | disposition home or self-care (01) ==
LOC: HO.CT 14:02
PROVIDERS: Visit Provider Surgery
DX: R91.1 Solitary pulmonary nodule (principal)
CPT/HCPCS: 71260; Q9967

== ENCOUNTER → 2021-01-07 08:29 | Outpatient (BNVA) | payer BC, SELFPAY | PROVIDERS: PCP Internal Medicine; Visit Provider Dietitian, Registered ==

== ENCOUNTER → 2021-01-10 08:16 | Outpatient (BNVA) | payer BC, SELFPAY | PROVIDERS: PCP Internal Medicine; Visit Provider Dietitian, Registered | DX: E66.01 Morbid (severe) obesity due to excess calories (principal) | CPT/HCPCS: 97803 ==

== ENCOUNTER → 2021-01-20 08:25 | Outpatient (BNVA) | payer BC, SELFPAY | PROVIDERS: PCP Internal Medicine; Visit Provider Surgery ==

== ENCOUNTER 2021-02-26 11:55 | Outpatient (REF) | payer BC, SELFPAY ==
[2021-03-01 17:06] LABS: TS Negative Control Passed; TS Panel A 1; TS Panel B 0; TS Positive Control Passed; TSpotTB Negative (SeeBelow)
== END 2021-02-26 11:56 | disposition home or self-care (01) ==
LOC: HO.MDS 11:55
PROVIDERS: Visit Provider Internal Medicine
DX: K50.812 Crohn's disease of both small and large intestine with intestinal obstruction (principal)
CPT/HCPCS: 36415; 86481; 96413; 96415; J1745

== ENCOUNTER 2021-04-11 12:05 | Outpatient (REF) | payer BC, SELFPAY | END 2021-04-11 12:06 | disposition home or self-care (01) | LOC: HO.MDS 12:05 | PROVIDERS: Visit Provider Internal Medicine | DX: K50.90 Crohn's disease, unspecified, without complications (principal) | CPT/HCPCS: 96413; 96415; J1745 ==

== ENCOUNTER 2021-06-06 10:52 | Outpatient (REF) | payer BC, SELFPAY | END 2021-06-06 10:53 | disposition home or self-care (01) | LOC: HO.MDS 10:52 | PROVIDERS: Visit Provider Internal Medicine | DX: K50.812 Crohn's disease of both small and large intestine with intestinal obstruction (principal) | CPT/HCPCS: Q5103 ==

== ENCOUNTER 2021-07-04 10:07 | Outpatient (REF) | payer BC, SELFPAY | END 2021-07-04 10:08 | disposition home or self-care (01) | LOC: HO.MDS 10:07 | PROVIDERS: Visit Provider Internal Medicine | DX: K50.812 Crohn's disease of both small and large intestine with intestinal obstruction (principal) | CPT/HCPCS: 96413; 96415; J1745; Q5103 ==

== ENCOUNTER 2021-09-15 12:09 | Outpatient (REF) | payer BC, SELFPAY | END 2021-09-15 12:10 | disposition home or self-care (01) | LOC: HO.MDS 12:09 | PROVIDERS: Visit Provider Internal Medicine | DX: K50.90 Crohn's disease, unspecified, without complications (principal) | CPT/HCPCS: 96413; 96415; Q5103 ==

== ENCOUNTER 2021-10-03 14:57 | Emergency (ER) | payer BC, SELFPAY | END 2021-10-03 17:32 | disposition left against medical advice (07) | PROVIDERS: Emergency Provider Emergency Medicine | DX: G89.29 Other chronic pain (principal) ==

== ENCOUNTER 2021-10-05 12:41 | Emergency (ER) | payer BC, SELFPAY ==
--- NOTE | ~2021-10-05 | CT_ITS ---
EXAMINATION: CT ABDOMEN AND PELVIS WITHOUT CONTRAST CLINICAL INFORMATION: 60-year-old male with history of Crohn's disease. Question small bowel obstruction. COMPARISON: Chest CT 12/24/2020, abdominal ultrasound 11/28/[address] abdomen pelvis 03/21/2020 TECHNIQUE: Multidetector volumetric imaging was performed from the superior aspect of the liver through the pubic symphysis. Sagittal and coronal reformatted images were obtained on the technologist's workstation. This CT examination was performed using dose optimization techniques as appropriate, variously including the following: *Automated exposure control *Adjustment of mA and/or kV according to patient size (this includes techniques or standardized protocols for targeted exams where dose is matched to indication/reason for exam; i.e. extremities or head) *Use of iterative reconstruction technique DLP: 1339 mGy-cm FINDINGS: Visualized lung bases are well aerated. Stable size and appearance of approximately 4 cm well-defined fluid collection just deep to the upper abdominal wall. The liver is mildly enlarged and demonstrates diffusely decreased attenuation. The gallbladder is relatively decompressed and therefore not accurately evaluated. The pancreas, spleen and adrenal glands are unremarkable. Symmetrically sized kidneys. No renal calculi or hydronephrosis bilaterally. The stomach is essentially decompressed. Proximal loops of small bowel are normal in caliber although there is gradual dilatation of the remaining loops of small bowel. Some loops of small bowel measure up to 6.8 cm in maximum diameter. Scattered air-fluid levels are also noted throughout the small bowel. Transition zone appears to be a herniated loop of bowel slightly to the left of midline (image 33/89, series 3). Loops of colon distal to this are decompressed. There has been interval surgical changes of the ventral abdominal wall with resolution of the previously visualized large left-sided hernia. A small hernia is however noted just to the right of midline which contains a nonobstructed loop of bowel (image 54). Normal caliber abdominal aorta. No retroperitoneal lymphadenopathy. The bladder is normal in appearance. The prostate gland is normal in size. No gross free pelvic fluid. No inguinal lymphadenopathy. Mild degenerative changes of the spine. CT/CT abdomen pelvis wo con IMPRESSION: Small bowel obstruction which is felt to be caused by a herniated loop of bowel slightly to the left of midline. This Critical Result was discussed with Dr. Brower at 3:20 PM on 10/05/2021 and it was ascertained that the content and urgency of the report was understood at the time of direct communication. Fleischner guidelines were followed.
--- NOTE | 2021-10-05 13:05 | ED_ITS ---
HPI - Abdominal Pain General Chief Complaint: Abdominal Pain Stated Complaint: abd pain Time Seen by Provider: 10/05/21 13:04 Source: patient Mode of arrival: EMS Limitations: no limitations History of Present Illness HPI narrative: Patient's history of Crohn's disease not on any medications recently diagnosed with lung cancer with Mets complaining of diffuse abdominal pain for last 4-5 days with abdominal distension did not have any bowel movement not passing any gas nauseated patient is very forgetful and a poor historian. No fever no chills no blood in the stool feel nauseated no vomiting Related Data Home Medications Medication Instructions Recorded Confirmed ascorbic acid (vitamin C) 1,000 mg 500 mg PO BID 09/02/20 10/31/20 tablet hydrochlorothiazide 25 mg tablet 25 mg PO DAILY 09/02/20 10/31/20 infliximab 100 mg intravenous 100 mg IV DIRECTED 09/02/20 10/31/20 solution (Remicade) omeprazole 40 mg capsule,delayed 40 mg PO DAILY 09/02/20 10/31/20 release allopurinol 100 mg tablet 100 mg PO BID 09/05/20 10/31/20 colchicine 0.6 mg tablet (Colcrys) 0.6 mg PO BID 09/05/20 10/31/20 diclofenac sodium 1 % topical gel 2 g TOPICAL QID PRN 09/05/20 10/31/20 dicyclomine 10 mg capsule 10 mg PO BID 09/05/20 10/31/20 folic acid 1 mg tablet 1 mg PO DAILY 09/05/20 10/31/20 gabapentin 400 mg capsule 400 mg PO TID 09/05/20 10/31/20 loperamide 2 mg tablet 2 mg PO Q6H PRN 09/05/20 10/31/20 oxycodone 10 mg tablet 10 mg PO BID PRN 09/05/20 10/31/20 Symbicort 09/13/20 10/31/20 albuterol sulfate 90 mcg/actuation INHALATION 09/13/20 10/31/20 aerosol inhaler (ProAir HFA) Previous Rx's Medication Instructions Recorded mecobalamin (vitamin B12) 1,000 1,000 mcg SUBLINGUAL DAILY #30 tab 12/20/20 mcg disintegrating tablet,sublingual zinc gluconate 10 mg lozenges 10 mg PO DAILY #100 ea 12/20/20 Allergies Allergy/AdvReac Type Severity Reaction Status Date / Time Fish Containing Products Allergy Severe HIVES Verified 10/31/20 17:49 peanut Allergy Severe HIVES/SEVERE Verified 10/31/20 17:49 N/V Review of Systems Review of Systems Yes all other systems are reviewed and are negative Physical Exam Vital Signs: Vital Signs: Last Vital Signs Temp 98.2 F 10/05/21 15:13 Pulse 94 10/05/21 15:13 Resp 20 10/05/21 15:13 BP 141/78 H 10/05/21 15:13 Pulse Ox 95 10/05/21 15:13 BMI result Body Mass Index 52.9 Appearance: Alert. Oriented X3. In mild distress. Eyes: No pallor or icterus ENT: Pharynx normal. Oral Mucosa moist Neck: Normal inspection. Neck supple. CVS: Normal heart rate and rhythm. Pulses normal. Respiratory: No respiratory distress. Equal air entry bilateral, no wheezi ng/rales/rhonchi Abdomen: Soft gaseous distension tympanic on percussion, diffuse tenderness no rebound tenderness guarding Bowel sounds are present, no mass palpable, no CVA tenderness Skin: Skin warm and dry. Normal skin color. Normal skin turgor. Extremities: No lower extremity edema. No calf tenderness Neuro: Oriented X 3. No motor deficit. MDM - Abdominal Pain MDM Narrative Medical decision making narrative: Patient with small-bowel obstruction caused by herniated loop needs NG tube patient refused to have NG tube does not want any surgery does not want to stay in the hospital wants to go home a signed AMA. Patient was explained multiple times about the need for NG tube and admission but patient still refused Medical Records Attestation: I reviewed the patient's medical records. Lab Data Attestation: I reviewed the patient's lab results. Result diagrams: 10/05/21 13:54 10/05/21 13:54 Labs: Lab Results 10/05/21 10/05/21 10/05/21 Range/Units 13:54 13:54 13:54 WBC 11.7 H (4.8-10.8) X10*3/uL RBC 5.76 (4.60-5.80) X10*6/uL Hgb 14.1 (14.0-18.0) g/dl Hct 45.9 (42.0-52.0) % MCV 79.7 L (80.0-98.0) fL MCH 24.5 L (27.0-33.0) pg MCHC 30.7 L (31.0-36.0) g/dl RDW 15.7 (11.0-16.0) % Plt Count 288 (160-400) X10*3/uL MPV 10.4 (9.4-12.4) fL Immature Gran % (Auto) 0.3 (0.0-0.4) % Neut % (Auto) 62.1 (45-73) % Lymph % (Auto) 19.0 L (20-40) % [place] % (Auto) 17.6 H (2-11) % Eos % (Auto) 0.7 (0-4) % Baso % (Auto) 0.3 (0-2) % Lymph # (Auto) 2.2 (1.2-4.9) X10*3/uL [place] # (Auto) 2.1 H (0.1-1.2) X10*3/uL Eos # (Auto) 0.1 (0.0-0.4) X10*3/uL Baso # (Auto) 0.0 (0.0-0.2) X10*3/uL Abs Immat Gran (auto) 0.03 (0.00-0.03) X10*3/uL Absolute Neuts (auto) 7.3 (2.0-8.3) x10*3/uL Absolute Nucleated RBC 0.000 (0.0-0.012) X10*3/uL Nucleated RBC % (auto) 0.0 (0.0-0.2) /100WBC Smear Tech's Comments VERIFIED Sodium 142 (135-145) mmol/L Potassium 4.2 (3.3-5.1) mmol/L Chloride 101 (96-108) mmol/L Carbon Dioxide 30 H (22-29) mmol/L Anion Gap 15 (12-20) BUN 47 H (9-16) mg/dL Creatinine 2.38 H (0.5-1.4) mg/dL Estim Creat Clear Calc 49.8 Estimated GFR 28 Random Glucose 116 H (60-115) mg/dL Lactic Acid 1.0 (0.5-2.0) mmol/L Calcium 9.6 (8.4-10.2) mg/dL Total Bilirubin 11.1 H (0.0-1.0) mg/dL AST 48 H D (5-37) U/L ALT 76 H (0-40) U/L Alkaline Phosphatase 91 D (39-117) U/L Total Protein 6.5 (6.5-8.0) g/dL Albumin 3.9 (3.5-5.0) g/dL Urine Color Urine Appearance Urine pH (5.0-8.0) Ur Specific [place] (1.005-1.025) Urine Protein (NEG-TRACE) MG/DL Urine Glucose (UA) (NEG) MG/DL Urine Ketones (NEG) MG/DL Urine Blood (NEG) Urine Nitrite (NEG) Ur Leukocyte Esterase (NEG) Urine RBC (0) /HPF Urine WBC (0-4) /HPF Ur Squamous Epith Cells /LPF Amorphous Sediment /LPF Urine Bacteria /LPF Hyaline Casts /LPF Granular Casts /LPF Urine Mucus /LPF COVID-19 (CED) (Negative) COVID-19 Clin Com 10/05/21 10/05/21 Range/Units 13:54 15:23 WBC (4.8-10.8) X10*3/uL RBC (4.60-5.80) X10*6/uL Hgb (14.0-18.0) g/dl Hct (42.0-52.0) % MCV (80.0-98.0) fL MCH (27.0-33.0) pg MCHC (31.0-36.0) g/dl RDW (11.0-16.0) % Plt Count (160-400) X10*3/uL MPV (9.4-12.4) fL Immature Gran % (Auto) (0.0-0.4) % Neut % (Auto) (45-73) % Lymph % (Auto) (20-40) % [place] % (Auto) (2-11) % Eos % (Auto) (0-4) % Baso % (Auto) (0-2) % Lymph # (Auto) (1.2-4.9) X10*3/uL [place] # (Auto) (0.1-1.2) X10*3/uL Eos # (Auto) (0.0-0.4) X10*3/uL Baso # (Auto) (0.0-0.2) X10*3/uL Abs Immat Gran (auto) (0.00-0.03) X10*3/uL Absolute Neuts (auto) (2.0-8.3) x10*3/uL Absolute Nucleated RBC (0.0-0.012) X10*3/uL Nucleated RBC % (auto) (0.0-0.2) /100WBC Smear Tech's Comments Sodium (135-145) mmol/L Potassium (3.3-5.1) mmol/L Chloride (96-108) mmol/L Carbon Dioxide (22-29) mmol/L Anion Gap (12-20) BUN (9-16) mg/dL Creatinine (0.5-1.4) mg/dL Estim Creat Clear Calc Estimated GFR Random Glucose (60-115) mg/dL Lactic Acid (0.5-2.0) mmol/L Calcium (8.4-10.2) mg/dL Total Bilirubin (0.0-1.0) mg/dL AST (5-37) U/L ALT (0-40) U/L Alkaline Phosphatase (39-117) U/L Total Protein (6.5-8.0) g/dL Albumin (3.5-5.0) g/dL Urine Color ORANGE Urine Appearance CLEAR Urine pH 5.5 (5.0-8.0) Ur Specific [place] >= 1.030 H (1.005-1.025) Urine Protein 3+ H (NEG-TRACE) MG/DL Urine Glucose (UA) NEG (NEG) MG/DL Urine Ketones 5 (NEG) MG/DL Urine Blood TRACE (NEG) Urine Nitrite SEE NOTE (NEG) Ur Leukocyte Esterase SEE NOTE (NEG) Urine RBC 0-2 (0) /HPF Urine WBC 0-2 (0-4) /HPF Ur Squamous Epith Cells TRACE /LPF Amorphous Sediment 1+ /LPF Urine Bacteria TRACE /LPF Hyaline Casts 0-2 /LPF Granular Casts 0-2 /LPF Urine Mucus TRACE /LPF COVID-19 (CED) Negative (Negative) COVID-19 Clin Com See Note Discharge Plan Discharge Clinical Impression: SBO (small bowel obstruction) Patient Disposition: Left Against Medical Advice Instructions: Bowel Obstruction (ED) Additional Instructions: You need to stay in the hospital for small bowel obstruction requiring surgery/NG tube insertion Years signed against medical advice Please seek medical attention as soon as possible at it may get worse and may lead to your Prescriptions: No Action mecobalamin (vitamin B12) 1,000 mcg tablet,disintegrating 1,000 mcg sublingual DAILY Qty: 30 RF: 2 zinc gluconate 10 mg lozenge 10 mg PO DAILY Qty: 100 RF: 1 gabapentin 400 mg Capsule 400 mg PO TID RF: 0 loperamide 2 mg Tablet 2 mg PO Q6H PRN (Reason: Diarrhea) RF: 0 allopurinol 100 mg Tablet 100 mg PO BID RF: 0 folic acid 1 mg Tablet 1 mg PO DAILY RF: 0 dicyclomine 10 mg Capsule 10 mg PO BID RF: 0 diclofenac sodium 1 % Gel 2 g TOPICAL QID PRN (Reason: Pain) RF: 0 oxycodone 10 mg Tablet 10 mg PO BID PRN (Reason: Pain) RF: 0 colchicine [Colcrys] 0.6 mg Tablet 0.6 mg PO BID RF: 0 albuterol sulfate [ProAir HFA] 90 mcg/actuation Hfa Aerosol Inhaler INHALATION RF: 0 Symbicort RF: 0 omeprazole 40 mg capsule,delayed release(DR/EC) 40 mg PO DAILY RF: 0 Remicade 100 mg recon soln 100 mg IV DIRECTED RF: 0 ascorbic acid (vitamin C) 1,000 mg tablet 500 mg PO BID RF: 0 hydrochlorothiazide 25 mg tablet 25 mg PO DAILY RF: 0 PMFSH Past Medical History Medical History Aortic aneurysm Asthma Crohn's disease DJD (degenerative joint disease) GERD (gastroesophageal reflux disease) GERD (gastroesophageal reflux disease) Gout Hypertension Hyperuricemia Incisional hernia Morbid obesity Neuropathy Obesity Obstructive sleep apnea Smoker Surgical History History of bowel resection (~2005) History of colonoscopy History of hernia repair (~2008) History of incisional hernia repair (10/11/18) Family History Family History Father History of prostate cancer Mother History of lung cancer Brother History of prostate cancer Son No problems noted. Daughter No problems noted. Social History Social History Alcohol intake: never Cigarette Packs Per Day: 1.5 Cigarettes Per Day: 30.0 Advance Directives: No Advance Directives Information Provided: Yes service: No Current occupational status: retired
[2021-10-05 13:09] VITALS: BP 125/78; BP 142/86; PULSE 101; PULSE 102; RESP 22; TEMP 36.7; O2SAT 95; O2SAT 96; BMI 52.9
[2021-10-05] MEDS: Morphine Sulfate 4 MG/ML CARTRIDGE IVPUSH (13:39)
[2021-10-05] MEDS: ondansetron HCL 4 MG/2 ML VIAL IVPUSH (13:40)
[2021-10-05] MEDS: 0.9 % Sodium Chloride 1,000 ML 999 ML IV (13:40)
[2021-10-05 14:01] LABS: Basophils Percent Auto 0.3 % (0-2); Eosinophils Absolute Auto 0.1 X10*3/uL (0.0-0.4); Eosinophils Percent Auto 0.7 % (0-4); Hematocrit 45.9 % (42.0-52.0); Hemoglobin 14.1 g/dl (14.0-18.0); Imm Gran Abs Auto 0.03 X10*3/uL (0.00-0.03); Imm Gran Pct Auto 0.3 % (0.0-0.4); Lymphocytes Absolute Auto 2.2 X10*3/uL (1.2-4.9); MANUAL DIFF FLAG SCAN; Mean Corpuscular HGB Conc 30.7 g/dl (31.0-36.0); Mean Corpuscular Hemoglobin 24.5 pg (27.0-33.0); Mean Corpuscular Volume 79.7 fL (80.0-98.0); Mean Platelet Volume 10.4 fL (9.4-12.4); Monocytes Absolute Auto 2.1 X10*3/uL (0.1-1.2); Monocytes Percent Auto 17.6 % (2-11); Neutrophils Absolute Auto 7.3 x10*3/uL (2.0-8.3); Neutrophils Percent Auto 62.1 % (45-73); Platelet Count 288 X10*3/uL (160-400); Red Blood Count 5.76 X10*6/uL (4.60-5.80); Red Cell Distribution Width 15.7 % (11.0-16.0); SCAN SMEAR FLAG 1; White Blood Count 11.7 X10*3/uL (4.8-10.8)
[2021-10-05 14:15] LABS: Alanine Aminotransferase 76 U/L (0-40); Albumin Level 3.9 g/dL (3.5-5.0); Alkaline Phosphatase 91 U/L (39-117); Anion Gap 15 (12-20); Aspartate Amino Transferase 48 U/L (5-37); Bilirubin Total 11.1 mg/dL (0.0-1.0); Blood Urea Nitrogen 47 mg/dL (9-16); Calcium 9.6 mg/dL (8.4-10.2); Carbon Dioxide 30 mmol/L (22-29); Chloride 101 mmol/L (96-108); Creatinine Clr Calc Pharmacy 49.8; Estimated Glomerular Filt Rate 28; Glucose Random 116 mg/dL (60-115); Potassium 4.2 mmol/L (3.3-5.1); Sodium 142 mmol/L (135-145); Total Protein 6.5 g/dL (6.5-8.0)
[2021-10-05 14:18] LABS: COVID-19 Test Negative (Negative)
[2021-10-05 14:19] LABS: SLIDE REVIEW VERIFIED
[2021-10-05 15:13] VITALS: BP 141/78; PULSE 94; RESP 20; TEMP 36.8; O2SAT 95
[2021-10-05 15:40] LABS: Appearance Urine CLEAR; Color Urine ORANGE; Glucose Urine UA NEG (NEG); PH 5.5 (5.0-8.0); Specific Gravity - Urine >= 1.030 (1.005-1.025); Urine Blood TRACE (NEG); Urine Ketones 5 MG/DL (NEG); Urine Protein 3+ MG/DL (NEG-TRACE)
--- NOTE | 2021-10-05 15:43 | PC.NURSE ---
approached for ng tube placement for sbo, pt refusing, provider aware.
[2021-10-05 15:53] LABS: Amorphous Sediment Urine 1+ /LPF; UACC Culture Trigger NO
[2021-10-05 15:54] LABS: Bacteria Urine TRACE /LPF; Granular Casts Urine 0-2 /LPF; Hyaline Casts Urine 0-2 /LPF; Mucus Urine TRACE /LPF; RBC Urine 0-2 /HPF (0); Squamous Epithelial Cell Urine TRACE /LPF; WBC Urine 0-2 /HPF (0-4)
== END 2021-10-05 19:37 | disposition left against medical advice (07) ==
PROVIDERS: Emergency Provider Internal Medicine
DX: K56.609 Unspecified intestinal obstruction, unspecified as to partial versus complete obstruction (principal); K50.912 Crohn's disease, unspecified, with intestinal obstruction; Z20.822 Contact with and (suspected) exposure to COVID-19; I10 Essential (primary) hypertension; C34.90 Malignant neoplasm of unspecified part of unspecified bronchus or lung; F17.200 Nicotine dependence, unspecified, uncomplicated
CPT/HCPCS: 74176; 80053; 81001; 83605; 85025; 87040; 87635; 96361; 96374; 96375; 99283; 99284; J2270; J2405

== ENCOUNTER 2021-10-10 10:59 | Outpatient (REF) | payer BC, SELFPAY ==
[2021-10-10 12:14] LABS: MANUAL DIFF FLAG NO
[2021-10-10 12:36] LABS: Basophils Percent Auto 0.4 % (0-2); Eosinophils Absolute Auto 0.2 X10*3/uL (0.0-0.4); Eosinophils Percent Auto 2.2 % (0-4); Hematocrit 43.1 % (42.0-52.0); Hemoglobin 13.3 g/dl (14.0-18.0); Imm Gran Abs Auto 0.02 X10*3/uL (0.00-0.03); Imm Gran Pct Auto 0.2 % (0.0-0.4); Lymphocytes Absolute Auto 3.3 X10*3/uL (1.2-4.9); Lymphocytes Percent Auto 40.7 % (20-40); Mean Corpuscular HGB Conc 30.9 g/dl (31.0-36.0); Mean Corpuscular Hemoglobin 24.3 pg (27.0-33.0); Mean Corpuscular Volume 78.6 fL (80.0-98.0); Mean Platelet Volume 11.4 fL (9.4-12.4); Monocytes Percent Auto 11.9 % (2-11); Neutrophils Absolute Auto 3.6 x10*3/uL (2.0-8.3); Neutrophils Percent Auto 44.6 % (45-73); Platelet Count 231 X10*3/uL (160-400); Red Blood Count 5.48 X10*6/uL (4.60-5.80); Red Cell Distribution Width 15.5 % (11.0-16.0); White Blood Count 8.2 X10*3/uL (4.8-10.8)
[2021-10-10 12:41] LABS: INTERNATIONAL NORM RATIO 1.3 (0.9-1.1); Prothrombin Time 15.1 SEC (9.9-13.0)
[2021-10-10 13:02] LABS: Alanine Aminotransferase 175 U/L (0-40); Albumin Level 3.9 g/dL (3.5-5.0); Alkaline Phosphatase 126 U/L (39-117); Anion Gap 19 (12-20); Aspartate Amino Transferase 97 U/L (5-37); Bilirubin Direct 3.1 mg/dL (0.0-0.5); Bilirubin Total 4.4 mg/dL (0.0-1.0); Blood Urea Nitrogen 21 mg/dL (9-16); Calcium 9.6 mg/dL (8.4-10.2); Carbon Dioxide 16 mmol/L (22-29); Chloride 106 mmol/L (96-108); Estimated Glomerular Filt Rate 53; Glucose Random 106 mg/dL (60-115); Lactate Dehydrogenase 366 U/L (118-273); Potassium 4.2 mmol/L (3.3-5.1); Sodium 137 mmol/L (135-145); Total Protein 6.5 g/dL (6.5-8.0)
[2021-10-10 13:42] LABS: Acetaminophen LAB 1 mcg/mL (<30)
[2021-10-11 13:32] LABS: Haptoglobin 336 mg/dL (43-212)
[2021-10-13 05:10] LABS: HBS Num1 0.28 mIU/mL (0-7.99); HBc Num1 0.07 S/CO (0.00-0.79); HBsAGNum1 0.21 S/CO (0.00-0.99); Hepatitis B Core Antibody Nonreactive (Nonreactive); Hepatitis B Surface Antigen Negative (Negative); ~Hepatitis B Surface Antibody NONREACTIVE (Nonreactive)
[2021-10-13 05:48] LABS: ~HepC Num1 0.08 S/CO (0.00-0.79); ~Hepatitis C Antibody Nonreactive (Nonreactive)
[2021-10-15 04:35] LABS: Hepatitis A Antibody IgM 0.13 Index (0-0.79); ~Hepatitis A Antibody IgM Nonreactive (Nonreactive)
== END 2021-10-10 11:00 | disposition home or self-care (01) ==
LOC: HO.LAB 10:59
PROVIDERS: Internal Medicine; Visit Provider Surgery
DX: E66.01 Morbid (severe) obesity due to excess calories (principal); J45.909 Unspecified asthma, uncomplicated; G47.33 Obstructive sleep apnea (adult) (pediatric); K50.90 Crohn's disease, unspecified, without complications; I10 Essential (primary) hypertension; K21.9 Gastro-esophageal reflux disease without esophagitis; E79.0 Hyperuricemia without signs of inflammatory arthritis and tophaceous disease; M10.9 Gout, unspecified
CPT/HCPCS: 36415; 80048; 80076; 80143; 83010; 83615; 85025; 85610; 86704; 86706; 86709; 86803; 87340